=== PATIENT | male | born 1980 | race Caucasian/White ===

== ENCOUNTER → 2016-10-10 | Outpatient (CLI) | payer BC | LOC: HEART 5 13:40 | DX: J44.9 Chronic obstructive pulmonary disease, unspecified (principal) | CPT/HCPCS: 94010 ==

== ENCOUNTER 2020-07-14 10:40 | Emergency (ER) | payer BC ==
[2020-07-14 12:23] LABS: HEMOGLOBIN 17.6 gm/dl (14.0-17.5); RED BLOOD COUNT 5.94 M/UL (4.20-5.50); WHITE BLOOD COUNT 7.1 K/UL (4.5-11.0)
[2020-07-14 12:39] LABS: BUN/CREATININE RATIO 16 (0-10)
== END 2020-07-14 17:26 | disposition home or self-care (01) ==
LOC: ER1 10:40
PROVIDERS: Physician Assistant
DX: U07.1 COVID-19 (principal); J12.82 Pneumonia due to coronavirus disease 2019; J44.9 Chronic obstructive pulmonary disease, unspecified; E11.9 Type 2 diabetes mellitus without complications; I10 Essential (primary) hypertension; Z23 Encounter for immunization
CPT/HCPCS: 71045; 80053; 82962; 85025; 99285; M0239

== ENCOUNTER → 2020-10-02 | Outpatient (CLI) | payer BC | LOC: HEART 5 10:39 | DX: R07.9 Chest pain, unspecified (principal); R00.2 Palpitations; I07.1 Rheumatic tricuspid insufficiency | CPT/HCPCS: 93306 ==

== ENCOUNTER → 2021-05-03 | Outpatient (CLI) | payer BC | LOC: NM 13:00 | DX: R10.11 Right upper quadrant pain (principal) | CPT/HCPCS: 78226; A9537 ==